=== PATIENT | male | born 1955 | race Caucasian/White ===

== ENCOUNTER 2017-08-28 11:55 | Emergency (ER) | payer OTHER ==
--- NOTE | 2017-08-28 12:58 | EDPHY ---
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 He receives his primary treatment and care in [place] but has been on an extended trip visiting family. He is on palliative care. Had a therapeutic thoracentesis in September and his oncologist Dr. Constantin Head wrote him a prescription before he left on his trip expecting that he would require a repeat thoracentesis at some time. The patient states that over the last couple of months he has had increasing pressure and decreasing exercise tolerance and some mild tingling to his left side. Is here requesting IR thoracentesis. He does not take blood thinners other than aspirin. He has not had a fever. He has not had a cough. REVIEW OF SYSTEMS: Constitutional: denies: chills, fever, recent illness, recent injury EENTM: denies: blurred vision, double vision, nose congestion Respiratory: See HPI Cardiac: denies: chest pain, irregular heart rate, lightheadedness, palpitations Gastrointestinal/Abdominal: denies: abdominal pain, diarrhea, nausea, vomiting, blood streaked stools Genitourinary: denies: dysuria, frequency, hematuria, pain Musculoskeletal: denies: joint pain, muscle pain Skin: denies: lesions, rash, jaundice, bruising Neurological: denies: headache, numbness, paresthesia, tingling, dizziness, weakness Hematologic/Lymphatic: denies: blood clots, easy bleeding, easy bruising Immunologic/allergic: denies: HIV/AIDS, transplant EXAM: GENERAL: Well-appearing, well-nourished and in no acute distress. HEAD: Atraumatic, normocephalic. EYES: Pupils equal round and reactive to light, extraocular movements intact, sclera anicteric, conjunctiva are normal. ENT: TMs normal, nares patent, oropharynx clear without exudates. Moist mucous membranes. NECK: Normal range of motion, supple without lymphadenopathy or JVD. LUNGS: Decreased breath sounds on the left, no wheezing HEART: Regular rate and rhythm without murmurs, rubs or gallops. ABDOMEN: Soft, nontender, normoactive bowel sounds. No guarding, no rebound. No masses appreciated. BACK: No CVA tenderness, no spinal tenderness, step-offs or deformities EXTREMITIES: Normal range of motion, no pitting or edema. No clubbing or cyanosis. NEUROLOGICAL: Cranial nerves II through XII grossly intact. Normal speech, normal gait. 5/5 strength, normal movement in all extremities, normal sensation PSYCH: Normal mood, normal affect. SKIN: Warm, dry, normal turgor, no visible rashes or lesions. 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, diabetes, hypertension, obesity - Family History Significant Family History: No pertinent family hx - Social History Smoking Status: Former smoker Alcohol Use: Sober Drug Use: None Constitutional: Initial Vital Signs Temperature (C) 37 C 08/28/17 12:04 Heart Rate 77 08/28/17 12:04 Respiratory Rate 18 08/28/17 12:04 Blood Pressure 125/85 H 08/28/17 12:04 O2 Sat (%) 93 08/28/17 12:04 O2 Delivery Mode Room Air Allergies/Adverse Reactions: No Known Allergies Allergy (Unverified 08/28/17 11:59) Home Medications: Medication Instructions Recorded Amlodipine Bes/Olmesartan Med 08/28/17 Aspirin 08/28/17 Diclofenac Sodium ER 08/28/17 Hydrochlorothiazide 08/28/17 Lisinopril 08/28/17 Metformin 1000 mg 08/28/17 Omeprazole 08/28/17 SIMVASTATIN 08/28/17 Ventolin Hfa 08/28/17 Vicodin 5-300 mg Tablet 08/28/17 Medical Decision Making - Diagnostics EKG Interpretation: An EKG obtained and was read and documented in trace view. Please see trace view for full reading and report. Sinus rhythm, no acute ischemic changes Imaging: Discussed imaging studies w/ tractor operator battery Radiologist ED Course/Re-evaluation: We discussed plan for ultrasound-guided thoracentesis. The patient states that he is also having some left rib pain and numbness which is consistent with metastases seen previously in his PET scan in his rib area. He is not concerned about this and it is not a new symptom. 3:[address] Lewis had a long discussion with the patient and at this point they decided not to proceed with thoracentesis because it is small. 3:30 p.m. I spoke with the patient and his daughter over the phone who is a surgeon. Daughter is concerned about loculated effusion that could not be well seen on ultrasound versus proteinaceous effusion. She is requesting we do a CT scan. I will do a CT angio to evaluate for PE as well. I suspect that his symptoms may be due to tumor burden and progression of his disease. 4:[address] is loculated effusion not amenable to drainage. He also has some tumor compression of his bronchus that may be exacerbating shortness of breath. 4:35 p.m. We discussed the CT results. We discussed options including referral to surgery for possible VATS procedure. He would like to discuss this with his oncologist and daughter. I agree that this is reasonable and not emergent. The patient is asking for a CD to take home. He declines further workup or testing. We discussed indications for returning. Differential Diagnosis: Partial list of the Differential diagnosis considered include but were not limited to; pleural effusion, pericardial effusion, tumor burden and although unlikely based on the history and physical exam, I also considered PE, dissection, acute coronary disease. I discussed these differential diagnoses and the plan with the patient as well as the usual and expected course. The patient understands that the diagnosis is provisional and that in medicine we are not always correct and that further workup is often warranted. Usual and customary warnings were given. All of the patient's questions were answered. The patient was instructed to return to the emergency department should the symptoms at all worsen or return, otherwise to followup with the physician as we discussed. - Data Points Laboratory Results: Laboratory Results 08/28/17 13:04 08/28/17 13:04 Medications Given: Discontinued Medications Hydromorphone HCl (Dilaudid) 1 mg IVP EDNOW ONE Stop: 08/28/17 13:45 Last Admin: 08/28/17 13:56 Dose: 1 mg Departure - Departure Disposition: Home, Routine, Self-Care Clinical Impression: Pleural effusion Lung metastasis Qualifiers: Laterality: unspecified laterality Qualified Code(s): C78.00 - Secondary malignant neoplasm of unspecified lung Condition: Fair Instructions: Pleural Effusion (ED) Referrals: FOUZIA GONZALEZ [Other] - As per Instructions
--- NOTE | 2017-08-28 13:00 | CPEKG ---
Heart Rate: 69 RR Interval: 870 P-R Interval: 148 QRSD Interval: 78 QT Interval: 364 QTC Interval: 390 P [place]: 45 QRS [place]: -18 T Wave [place]: 81 EKG Severity - OTHERWISE NORMAL ECG - EKG Impression: SINUS RHYTHM EKG Impression: BORDERLINE LEFT AXIS DEVIATION Electronically Signed By: Otis Woodward 28-Aug-2017 13:24:19
[2017-08-28 13:16] LABS: PLATELET COUNT 272 10^3/uL (150-400)
[2017-08-28 13:25] LABS: INR 0.98 (0.83-1.16); PROTIME(PATIENT) 13.2 SEC (12.0-15.0)
[2017-08-28] MEDS ORDERED: HYDROmorphONE/DILAUDID 1 MG/ML INJ IVP ONE (13:44)
[2017-08-28] MEDS ORDERED: HYDROmorphONE/DILAUDID 1 MG/ML INJ ONE (13:53)
[2017-08-28] MEDS ORDERED: LIDOCAINE 1% 300 MG/30 ML SDV ONE (13:57)
[2017-08-28] MEDS ORDERED: IOPAMIDOL (ISOVUE 370) 100 ML BTL IV ONE (15:28)
[2017-08-28 17:17] VITALS: BP 121/76; PULSE 74; RESP 16; TEMP 98.1; O2SAT 91
== END 2017-08-28 17:17 | disposition home or self-care (01) ==
DX: J90 Pleural effusion, not elsewhere classified (principal); C78.00 Secondary malignant neoplasm of unspecified lung; I10 Essential (primary) hypertension; E11.9 Type 2 diabetes mellitus without complications; Z79.82 Long term (current) use of aspirin; Z79.84 Long term (current) use of oral hypoglycemic drugs; Z87.891 Personal history of nicotine dependence
CPT/HCPCS: 71046; 71275; 76604; 93005; 96374; 99285; J1170; Q9967

== ENCOUNTER 2018-11-22 07:30 | Emergency (ER) | payer OTHER, MEDICARE ==
[2018-11-22] MEDS ORDERED: IPRATROPIUM/ALBUTEROL 3 ML DEYVIAL IH ONE (07:59)
--- NOTE | 2018-11-22 08:03 | EDPHY ---
H & P Stated Complaint: Woke 2AM c SOB and gasping. Time Seen by Provider: 11/22/18 07:50 HPI/ROS: CHIEF COMPLAINT: Woke up gasping HISTORY OF PRESENT ILLNESS: Patient is a 63-year-old man with a history of submandibular adenocystic carcinoma stage IV there is resected several years ago but now has multiple metastasis to his lung. He currently is living in [place] with this daughter but came to [place] 10 days ago to visit his son. He is currently on palliative care. I saw him about a year ago with similar presentation and at that time he is requesting a thoracentesis but ultimately he only had a small effusion that was loculated and did not require emergent drainage. He states that he does not feel short of breath all the time but when he relaxes or falls asleep he wakes up gasping. He does report a history of asthma as well. He denies recent cough or fevers. He is also morbidly obese and states that if he lays on his back his abdomen makes it hard for him to breathe. He does not wear oxygen at baseline. No recent leg pain or swelling. no previous DVT or PE. Severity: Moderate Modifying factors: Worsened by sleeping or position REVIEW OF SYSTEMS: Constitutional: denies: chills, fever, recent illness, recent injury EENTM: denies: blurred vision, double vision, nose congestion Respiratory: See HPI Cardiac: denies: chest pain, irregular heart rate, lightheadedness, palpitations Gastrointestinal/Abdominal: denies: abdominal pain, diarrhea, nausea, vomiting, blood streaked stools Genitourinary: denies: dysuria, frequency, hematuria, pain Musculoskeletal: denies: joint pain, muscle pain Skin: denies: lesions, rash, jaundice, bruising Neurological: denies: headache, numbness, paresthesia, tingling, dizziness, weakness Hematologic/Lymphatic: denies: blood clots, easy bleeding, easy bruising Immunologic/allergic: denies: HIV/AIDS, transplant 10 systems reviewed and negative except as noted EXAM: GENERAL: Morbidly obese, lying on side. HEAD: Atraumatic, normocephalic. EYES: Pupils equal round and reactive to light, extraocular movements intact, sclera anicteric, conjunctiva are normal. ENT: TMs normal, nares patent, oropharynx clear without exudates. Moist mucous membranes. NECK: Normal range of motion, supple without lymphadenopathy or JVD. LUNGS: Breath sounds clear to auscultation bilaterally and equal. No wheezes rales or rhonchi. HEART: Regular rate and rhythm without murmurs, rubs or gallops. ABDOMEN: Soft, nontender, normoactive bowel sounds. No guarding, no rebound. No masses appreciated. BACK: No CVA tenderness, no spinal tenderness, step-offs or deformities EXTREMITIES: Normal range of motion, no pitting or edema. No clubbing or cyanosis. NEUROLOGICAL: Cranial nerves II through XII grossly intact. Normal speech, normal gait. 5/5 strength, normal movement in all extremities, normal sensation , normal reflexes PSYCH: Normal mood, normal affect. SKIN: Warm, dry, normal turgor, no visible rashes or lesions. Source: Patient Exam Limitations: No limitations - Personal History Current Tetanus/Diphtheria Vaccine: Yes - Medical/Surgical History Hx Asthma: No Hx Chronic Respiratory Disease: No Hx Diabetes: No Hx Cardiac Disease: No Hx Renal Disease: No Hx Cirrhosis: No Hx Alcoholism: No Hx HIV/AIDS: No Hx Splenectomy or Spleen Trauma: No Other PMH: Submandibular adenocystic carcinoma stage IV with lung metastasis, diabetes, hypertension, obesity, asthma - Family History Significant Family History: No pertinent family hx - Social History Smoking Status: Former smoker Alcohol Use: Sober Drug Use: None Constitutional: Initial Vital Signs Temperature (C) 36.7 C 11/22/18 07:40 Heart Rate 76 11/22/18 07:40 Respiratory Rate 28 H 11/22/18 07:40 Blood Pressure 190/106 H 11/22/18 07:40 O2 Sat (%) 94 11/22/18 07:40 O2 Delivery Mode Room Air Allergies/Adverse Reactions: No Known Allergies Allergy (Verified 11/22/18 07:37) Home Medications: Medication Instructions Recorded Amlodipine Bes/Olmesartan Med 08/28/17 Aspirin 08/28/17 Diclofenac Sodium ER 08/28/17 Hydrochlorothiazide 08/28/17 Lisinopril 08/28/17 Metformin 1000 mg 08/28/17 Omeprazole 08/28/17 SIMVASTATIN 08/28/17 Ventolin Hfa 08/28/17 Vicodin 5-300 mg Tablet 08/28/17 Medical Decision Making - Diagnostics EKG Interpretation: An EKG obtained and was read and documented in trace view. Please see trace view for full reading and report. Sinus rhythm, no acute ischemic changes Imaging Results: Imaging Impressions Chest/Thorax CTA 11/22/18 07:59 Impression: Limited study due to bolus timing. 1. No acute central pulmonary embolus. 2. Decreased aeration of the left lung with near complete atelectasis of the left lower lobe. There is also a loculated effusion on the left which surrounds the lung. 3. Redemonstration of numerous pulmonary nodules, the majority of which appear increased in size. There is also pleural thickening as well as pericardial implants. 4. Fatty liver. Findings and recommendations discussed with PABLO MEDEIRSO at 10:05 AM, 2018. Imaging: Discussed imaging studies w/ washing machine installer Radiologist ED Course/Re-evaluation: 10:15 a.m. We discussed the patient's CT results at length. He does well while awake but when he falls asleep has these startle episode and states that he feels like he was not breathing. This is very similar to episodes of sleep apnea he has had in the past although he states it does not seem to improve like it usually does with his CPAP. We discussed options. The patient is ready to go home and declines further workup or testing at this time. He does not have a doctor in [place]. I encouraged him to return here if his symptoms continue or worsen. Differential Diagnosis: Partial list of the Differential diagnosis considered include but were not limited to; obstructive sleep apnea, pleural effusion, lung metastasis, PE and although unlikely based on the history and physical exam, I also considered pneumonia, pneumothorax, acute coronary disease. I discussed these differential diagnoses and the plan with the patient as well as the usual and expected course. The patient understands that the diagnosis is provisional and that in medicine we are not always correct and that further workup is often warranted. Usual and customary warnings were given. All of the patient's questions were answered. The patient was instructed to return to the emergency department should the symptoms at all worsen or return, otherwise to followup with the physician as we discussed. - Data Points Laboratory Results: Laboratory Results 11/22/18 08:35 11/22/18 08:35 11/22/18 11/22/18 11/22/18 08:35 08:35 08:35 WBC 9.37 10^3/uL 10^3/uL (3.80-9.50) RBC 3.94 10^6/uL L 10^6/uL (4.40-6.38) Hgb 11.9 g/dL L g/dL (13.7-17.5) Hct 36.6 % L % (40.0-51.0) MCV 92.9 fL fL (81.5-99.8) MCH 30.2 pg pg (27.9-34.1) MCHC 32.5 g/dL g/dL (32.4-36.7) RDW 13.9 % % (11.5-15.2) Plt Count 275 10^3/uL 10^3/uL (150-400) MPV 9.3 fL fL (8.7-11.7) Neut % (Auto) 70.6 % % (39.3-74.2) Lymph % (Auto) 16.6 % % (15.0-45.0) [place] % (Auto) 10.8 % % (4.5-13.0) Eos % (Auto) 1.1 % % (0.6-7.6) Baso % (Auto) 0.3 % % (0.3-1.7) Nucleat RBC Rel Count 0.0 % % (0.0-0.2) Absolute Neuts (auto) 6.61 10^3/uL H 10^3/uL (1.70-6.50) Absolute Lymphs (auto) 1.56 10^3/uL 10^3/uL (1.00-3.00) Absolute Monos (auto) 1.01 10^3/uL H 10^3/uL (0.30-0.80) Absolute Eos (auto) 0.10 10^3/uL 10^3/uL (0.03-0.40) Absolute Basos (auto) 0.03 10^3/uL 10^3/uL (0.02-0.10) Absolute Nucleated RBC 0.00 10^3/uL 10^3/uL (0-0.01) Immature Gran % 0.6 % % (0.0-1.1) Immature Gran # 0.06 10^3/uL 10^3/uL (0.00-0.10) APTT 49.2 SEC H SEC (23.0-38.0) Sodium 135 mEq/L mEq/L (135-145) Potassium 5.1 mEq/L mEq/L (3.5-5.2) Chloride 98 mEq/L mEq/L (97-110) Carbon Dioxide 23 mEq/l mEq/l (22-31) Anion Gap 14 mEq/L mEq/L (6-14) BUN 27 mg/dL H mg/dL (7-23) Creatinine 1.0 mg/dL mg/dL (0.7-1.3) Estimated GFR > 60 Glucose 99 mg/dL mg/dL (70-100) Calcium 10.0 mg/dL mg/dL (8.5-10.4) POC Troponin I 11/22/18 08:24 WBC RBC Hgb Hct MCV MCH MCHC RDW Plt Count MPV Neut % (Auto) Lymph % (Auto) [place] % (Auto) Eos % (Auto) Baso % (Auto) Nucleat RBC Rel Count Absolute Neuts (auto) Absolute Lymphs (auto) Absolute Monos (auto) Absolute Eos (auto) Absolute Basos (auto) Absolute Nucleated RBC Immature Gran % Immature Gran # APTT Sodium Potassium Chloride Carbon Dioxide Anion Gap BUN Creatinine Estimated GFR Glucose Calcium POC Troponin I 0.02 ng/mL ng/mL (0.00-0.08) Medications Given: Discontinued Medications Albuterol/Ipratropium (Duoneb) 3 ml IH EDNOW ONE Stop: 11/22/18 08:00 Last Admin: 11/22/18 08:26 Dose: 3 ml Point of Care Test Results: Chemistry 11/22/18 08:24 POC Troponin I 0.02 ng/mL ng/mL (0.00-0.08) Departure - Departure Disposition: Home, Routine, Self-Care Clinical Impression: Pleural effusion Lung metastasis Qualifiers: Laterality: unspecified laterality Qualified Code(s): C78.00 - Secondary malignant neoplasm of unspecified lung Sleep apnea Qualifiers: Sleep apnea type: unspecified type Qualified Code(s): G47.30 - Sleep apnea, unspecified Condition: Fair Instructions: Sleep Apnea (DC), Pleural Effusion (ED) Referrals: SHARMILA PRINCE [Other] - As per Instructions
--- NOTE | 2018-11-22 08:30 | CPEKG ---
Test Reason : OPEN Blood Pressure : / mmHG Vent. Rate : 076 BPM Atrial Rate : 077 BPM P-R Int : 147 ms QRS Dur : 079 ms QT Int : 381 ms P-R-T Axes : 055 -18 021 degrees QTc Int : 429 ms Sinus rhythm Probable left atrial enlargement Borderline left axis deviation Low voltage, precordial leads Abnormal R-wave progression, early transition Confirmed by Pablo Medeiros ([id number]) on 11/22/2018 8:30:16 AM Referred By: PABLO MEDEIROS Confirmed By:Pablo Medeiros
[2018-11-22 08:42] LABS: PLATELET COUNT 275 10^3/uL (150-400)
[2018-11-22] MEDS ORDERED: IOPAMIDOL (ISOVUE 370) 100 ML BTL IV ONE (09:16)
[2018-11-22 10:02] VITALS: BP 162/89
== END 2018-11-22 10:26 | disposition home or self-care (01) ==
DX: J90 Pleural effusion, not elsewhere classified (principal); C78.00 Secondary malignant neoplasm of unspecified lung; C08.0 Malignant neoplasm of submandibular gland; G47.30 Sleep apnea, unspecified; E66.01 Morbid (severe) obesity due to excess calories
CPT/HCPCS: 71275; 93005; 99285; Q9967; 84484-ER